=== PATIENT | female | born 1945 | race Caucasian/White ===

== ENCOUNTER → 2023-05-25 | Outpatient (CLI) | payer MEDICARE ==
--- NOTE | 2023-05-28 11:56 | MR ---
EXAMINATION TYPE: MR shoulder LT wo con DATE OF EXAM: 05/25/2023 COMPARISON: Outside left shoulder x-ray March 30, 2023 HISTORY: Left shoulder pain TECHNIQUE: Multiplanar, multisequence imaging of the left shoulder is performed without contrast. FINDINGS: Rotator Cuff: Some increased signal involving the inferior fibers of the infraspinatus tendon. Mild e britt in the supraspinatus muscle bulk. Supraspinatus tendon intact. Subscapularis tendon intact. Rota tor cuff muscle bulk preserved. Acromioclavicular Joint: Moderate narrowing with [id number] spurring. Type II downsloping acrom ion is noted. Glenohumeral Joint: Moderate size joint effusion. No significant spurring. Probable 11 mm intra-artic ular loose body inferiorly and posteriorly coronal image 19 Labrum: The labrum appears grossly intact given limitation of non-arthrogram study. Biceps Tendon: The long head of biceps is in normal location within bicipital groove. Bone marrow signal: No focal abnormal marrow signal is appreciated. Other: No additional significant abnormality is appreciated. IMPRESSION: 1. Moderate degenerative changes are present as detailed above. Suspect a 11 mm intra-articular loose body.
== END | disposition home or self-care (01) ==
LOC: RADMRIMAIN 10:46
PROVIDERS: ATTEND Orthopaedic Surgery
DX: M25.512 Pain in left shoulder (principal)

== ENCOUNTER → 2023-07-23 | Outpatient (CLI) | payer MEDICARE ==
[2023-07-23 15:34] LABS: BUN/Creat Ratio 10.91 Ratio (12.00-20.00); Calcium 10.3 mg/dL (8.7-10.3); Carbon Dioxide 26.1 mmol/L (21.6-31.8); Chloride 102 mmol/L (96-109); Glucose 113 mg/dL (70-110); Potassium 4.9 mmol/L (3.5-5.5); Sodium 142 mmol/L (135-145)
[2023-07-23 15:58] LABS: Basophils # (A) 0.03 X 10*3/uL (0.00-0.10); Basophils % (A) 0.5 %; Eosinophils # (A) 0.18 X 10*3/uL (0.04-0.35); Eosinophils % (A) 3.1 %; HCT 48.3 % (37.2-46.3); HGB 15.9 g/dL (12.0-15.0); Lymphocytes # (A) 1.26 X 10*3/uL (0.90-5.00); MCH 29.8 pg (27.0-32.0); MCHC 32.9 g/dL (32.0-37.0); MCV 90.6 FL (80.0-97.0); Mean Platelet Volume 11.1 FL (9.5-12.2); Monocytes # (A) 0.41 X 10*3/uL (0.20-1.00); Monocytes % (A) 7.1 %; NRBC Per 100 WBC 0 X 10*3/uL (0.00-0.01); Neutrophils # (A) 3.85 X 10*3/uL (1.80-7.70); Neutrophils % (A) 67.1 %; Platelet Count 234 X 10*3/uL (140-440); RBC 5.33 X 10*6/uL (4.10-5.20); RDW 13.2 % (11.5-14.5); WBC 5.74 X 10*3/uL (4.50-10.00)
== END | disposition home or self-care (01) ==
LOC: LABWHC1 08:53
PROVIDERS: ATTEND Orthopaedic Surgery
DX: Z01.818 Encounter for other preprocedural examination (principal); M75.42 Impingement syndrome of left shoulder
CPT/HCPCS: 36415; 80048; 85025; 93005

== ENCOUNTER 2023-08-21 05:31 | Day surgery (SDC) | payer MEDICARE ==
--- NOTE | 2023-08-20 08:05 | P.HPOR ---
History of Present Illness H&P Date: 08/20/23 Chief Complaint: Left shoulder pain The patient is an 78-year-old [id number] female who presents with left shoulder pain that began after an injury in March of this year. Her dog yanked her and she felt pain in the shoulder. Setting pain with overhead use and at night ever since. She's tried therapy along with medications without much relief. She's having significant night symptoms. Review of Systems As per HPI Physical Examination - Shoulder left Tenderness with palpation: anterior, bicipital groove Pain: with abduction, with forward flexion ROM: forward flexion: 100 degrees ROM: internal rotation: 0 ROM: external rotation: 50 degrees Crepitus with motion: Yes Tests: internal impingement tests: positive, external impingment tests: positive Results Patient is a well-developed well-nourished female approximately 5 foot 4, 185 pounds of endomorphic habitus. HEENT exam is nonfocal, neck is supple. She's tender about the left shoulder anterior subacromial space. Moderate crepitus is noted. Rice, Neer sign are positive. Motor strength is 5 -/ 5 for abduction and external rotation. Her distal neurovascular exam appears intact in the left upper extremity. - Diagnostic results Shoulder MRI: image reviewed (MRI of the left shoulder by report shows evidence of an intra-articular loose body along with significant biceps tendinosis. The rotator cuff appears to be intact.) Assessment and Plan Assessment: Left shoulder impingement/intra-articular loose body/proximal biceps tendinosis Plan: I talked to the patient at length regarding her condition along with treatment options. At this point she remains quite symptomatic despite conservative measures. After a thorough discussion she opts to proceed with surgery. We'll plan to proceed with left shoulder arthroscopy with probable loose body removal, possible biceps tenotomy versus tenodesed this along with subacromial decompression. Risks and benefits were discussed at length in layman's terms. We will likely perform that as an outpatient procedure.
[2023-08-21] MEDS: ONDANSETRON 4 MG/2 ML VIAL IVP ONE (06:30)
[2023-08-21] MEDS: DEXAMETHASONE SOD PHOSPHATE 4 MG/ML 1 ML VIAL IV ONE (06:30)
[2023-08-21] MEDS: IV FLUID CONTINUATION 1,000 ML IV ONE ×2 (06:30→09:23)
[2023-08-21] MEDS: MIDAZOLAM 2 MG/2 ML VIAL IVP ONE (06:40)
[2023-08-21 06:55] VITALS: TEMP 97
[2023-08-21] MEDS ORDERED: HYDROmorphone 0.5 MG/0.5 ML SYRINGE IVP PRN (07:00)
[2023-08-21] MEDS ORDERED: MIDAZOLAM 2 MG/2 ML VIAL IV PRN (07:00)
--- NOTE | 2023-08-21 07:19 | P.ANPRN ---
Procedure Note - Anesthesia - Nerve Block Performed Left Interscalene Single Time Out Performed: Yes Date of Procedure: 08/21/23 Procedure Start Time: :04 Procedure Stop Time: 07:09 Location of Patient: PreOp Indication: Acute Post-Operative Pain, Analgesia, Requested by Surgeon Sedation Type: Sedate with meaningful contact maintained Preparation: Sterile Prep Position: Sitting Needle Types: Pajunk Needle Gauge: 21 Ultrasound used to visualize needle placement: Yes Ultrasound used to observe medication spread: Yes Injectate: 0.5% Ropivacaine (see comment for volume) (Ropiv 20ml+decadron 4mg. No Nerve stimulation at 0.5MA)
[2023-08-21] MEDS ORDERED: DEXAMETHASONE SOD PHOSPHATE 4 MG/ML 1 ML VIAL ONE (07:22)
[2023-08-21] MEDS ORDERED: PROPOFOL 10 MG/ML 20 ML VIAL IV ONE (07:22)
[2023-08-21] MEDS ORDERED: LIDOCAINE 1% INJ 10MG/ML (20 ML MDV) ONE (07:22)
[2023-08-21] MEDS ORDERED: SUCCINYLCHOLINE CHLORIDE 200 MG/10 ML VIAL IV ONE (07:22)
[2023-08-21] MEDS ORDERED: ROPIVACAINE 5 MG/ML 30 ML VIAL ONE (07:22)
[2023-08-21] MEDS ORDERED: fentaNYL (PF) 50 MCG/ML 2 ML AMP ONE (07:22)
[2023-08-21] MEDS ORDERED: ePHEDrine 50 MG/ML 1 ML VIAL ONE (07:22)
[2023-08-21 07:26] VITALS: RESP 16
--- NOTE | 2023-08-21 08:52 | P.OP ---
Date of Procedure: 08/21/23 Preoperative Diagnosis: Left shoulder impingement Postoperative Diagnosis: Same in addition to high-grade partial-thickness tear intra-articular portion long head of the biceps, intra-articular loose body, grade 23 chondral injury posterior superior humeral head, high-grade partial-thickness tear anterior supraspinatus tendon/rotator cuff Procedure(s) Performed: Left shoulder arthroscopic subacromial decompression/biceps tenotomy/rotator cuff repair/humeral head chondral ectomy Implants: Arthrex 4.75 mm swivel lock anchor x 1, 5.5 mm swivel lock anchor x 1 Anesthesia: DORIS, regional Surgeon: Vikas Meza Fibreglass Gun Hand #1: Shad Sandoval Estimated Blood Loss (ml): 10 Pathology: none sent Condition: stable Disposition: PACU Indications for Procedure: The patient is an 78-year-old female who presents with progressive left shoulder pain after an injury despite conservative measures. A discussion of the risks and benefits of operative intervention versus continued conservative measures was made patient. She opted to proceed with surgery. Operative risks to include infection, neurovascular injury, development of blood clots, possible tendon rerupture, possible postoperative stiffness and need for subsequent procedures was discussed. Operative Findings: As below Description of Procedure: The patient was brought to the operating room, and after induction of general anesthesia was placed in a beachchair position. A preoperative interscalene block was placed for postoperative analgesia. I examined the left shoulder. There was some block to full forward elevation and external rotation. The left upper extremity was prepped and draped in normal fashion. The bony outlines the acromion, distal clavicle, and coracoid process were outlined with a skin marker. The glenohumeral joint was inflated with 50 mL of saline utilizing a spinal needle from posterior approach. A posterior portal was made through a 5 mm skin incision 1 cm medial and inferior to the posterior lateral border time. A blunt trocar was used to easily into the joint. Diagnostic arthroscopy was performed. An anterior portal was made just lateral to the coracoid process entering the joint above the subscapularis tendon. The subscapularis tendon appeared to be intact. Anterior labrum was intact. The inferior recess was inspected. The posterior labrum was intact. There was a high-grade partial- thickness tear of the long head of the biceps involving interarticular portion. It was elected to proceed with release at this point. This was released from the superior labrum with electrocautery and was allowed to retract to the bicipital groove. On inspection the rotator cuff, it appeared to be intact on the articular surface. The arthroscope was placed into the subacromial space. A lateral portal was made 2 centimeters inferior to the anterior lateral border of the acromion. The rotator cuff was inspected. There is a high-grade partial-thickness tear involving 80% of the tendon thickness of the anterior 1 cm of the supraspinatus. This was fully taken down and mobilized. The soft tissue on the undersurface of the acromion was debrided with a motorized shaver and electrocautery clearly defining the anterior medial and lateral borders as well as the distal clavicle. An anterior inferior acromioplasty was performed with a motorized toñito starting anterolateral, then extending this posteriorly, then extending this medially. I converted to a flat acromion and this was verified in the posterior and lateral viewing portals. An accessory superior lateral portals made just off the lateral edge of the acromion for anchor placement. A 4.75 mm swivel lock anchor preloaded with #2 fiber tape were then placed just off the articular surface with the appropriate starting awl. 4.75 mm anchors preloaded with #2 fiber tape was placed. Good purchase was obtained. These fiber tapes were then passed the rotator cuff with a scorpion suture passer. A lateral row was created utilizing these tapes. A 5.5 mm swivel lock anchor was placed laterally with good purchase. Final arthroscopic view showed adequate compression at the footprint. The arthroscope was then removed. The portals were closed with simple 3-0 nylon sutures. A sterile dressing was applied in addition to a sling. The patient was then awoken from general anesthesia and transferred to recovery room in good condition. Blood loss was estimated at 10 mL. No complications were incurred. Sponge and needle counts were correct in the case. Shad NEUMANN assisted and the major components of the case to include arm positioning, anchor placement, and rotator cuff repair.
[2023-08-21] MEDS: LACTATED RINGERS 1,000 ML IV SCH (09:24)
[2023-08-21] MEDS: METOPROLOL TARTRATE 5 MG/5 ML VIAL IVP ONE (09:38)
[2023-08-21 12:03] VITALS: BP 156/87; PULSE 75
== END 2023-08-21 12:26 | disposition home or self-care (01) ==
LOC: OR 05:31
PROVIDERS: ATTEND Orthopaedic Surgery
DX: M75.112 Incomplete rotator cuff tear or rupture of left shoulder, not specified as traumatic (principal); S46.112A Strain of muscle, fascia and tendon of long head of biceps, left arm, initial encounter; M75.42 Impingement syndrome of left shoulder; M24.012 Loose body in left shoulder; G89.18 Other acute postprocedural pain; N28.9 Disorder of kidney and ureter, unspecified; I10 Essential (primary) hypertension; E78.5 Hyperlipidemia, unspecified; Z88.0 Allergy status to penicillin; Z79.899 Other long term (current) drug therapy; X58.XXXA Exposure to other specified factors, initial encounter
CPT/HCPCS: 64415; 29826; 29827; 29828; C1713 ×2; C1894; J2250; J0330; J1100; J0690; J2405; J2001; J3010; J2795; J2704